=== PATIENT | male | born 1990 | race Caucasian/White ===

== ENCOUNTER 2018-06-11 16:26 | Emergency (ER) | payer OTHER ==
[2018-06-11] MEDS ORDERED: Sodium Chloride 0.9% 10 ML Syringe FLUSH PRN (16:27)
[2018-06-11] MEDS ORDERED: Sodium Chloride 0.9% 2.5 ML Syringe FLUSH PRN (16:27)
--- NOTE | 2018-06-11 16:34 | EDM.PDOC ---
ED HPI GENERAL MEDICAL PROBLEM - General Stated Complaint: UNKNOWN Time Seen by Provider: 06/11/18 16:27 - History of Present Illness INITIAL COMMENTS - FREE TEXT/NARRATIVE: HISTORY AND PHYSICAL: History of present illness: The patient is a healthy 28 y/o male who presents from work in the [employer] after having a high pressure piece of equipment strike him in the anterior chest wall causing him to be thrown backwards and fall to the ground. The patient did not pass out or blacked out but says that he was dazed and had the wind knocked out of him. He presents to the ED through triage with complaints of anterior chest wall pain only. He says that his coworkers noticed some redness to the top of his scalp but he has no head neck or back pain no extremity complaints and no abdominal complaints. He says he felt some nausea at the time of the events but no longer feels nauseated and had no vomiting. Patient has no numbness weakness or tingling in his extremities and says that there is discomfort in his anterior chest wall which is bilateral and midsternal and is worse with movement and deep breaths. He also says that this piece of equipment after striking his chest and then flew up and hit him in the face causing him to have a bilateral nosebleed but he does not have any tooth pain facial pain nasal pain or any other issues with his face or neck. Prior to these events he was in his usual state of good health with no systemic complaints. After he was struck and he fell backwards he did not fall any significant height just his own physical height. Review of systems: As per history of present illness and below otherwise all systems reviewed and negative. Past medical history: As per history of present illness and as reviewed below otherwise noncontributory. Surgical history: As per history of present illness and as reviewed below otherwise noncontributory. Social history: No reported history of drug or alcohol abuse. Family history: As per history of present illness and as reviewed below otherwise noncontributory. Physical exam: General: Well-developed well-nourished man who is nontoxic and vital signs were noted by me. He ablated into the ED without assistance. C-collar was not applied as I quickly assess the patient's exam and the patient had no tenderness defects or deformities appreciated and was awake alert and oriented and competent to make that determination. I did not place the collar on and clinically cleared him HEENT: Atraumatic except for a small area of redness noticed to the top of his head and off to the left slightly without any soft tissue swelling deformities defects or lacerations, normocephalic, pupils reactive, EOMs are intact, negative for conjunctival pallor or scleral icterus, mucous membranes moist, throat clear, neck supple, nontender, trachea midline. There are no midline step -offs tenderness defects of the cervical spine, there is no visible evidence of any soft tissue swelling of the facial bones and there are no palpable bony deformities of any of the facial architecture, teeth and bite are intact, there is some clotted nasal blood bilaterally but no active nasal bleeding is appreciated and the nasal bridge is stable and intact and the nose looks to be in good alignment, the patient is not complaining of any tenderness on palpation of the facial bones. Lungs: Clear to auscultation, breath sounds equal bilaterally, there is no soft tissue evidence of any trauma such as ecchymosis erythema or abrasions. There is reproducible tenderness with palpation of the sternum throughout the middle section as well as on the anterior ribs bilaterally but there is no palpable bony deformities crepitus or defects appreciated. There is good Air exchange without wheezing or stridor Heart: S1S2, regular, negative for clicks, rubs, or JVD. Abdomen: Soft, nondistended, nontender. Negative for masses or hepatosplenomegaly. Negative for costovertebral tenderness. There is no evidence of any soft tissue injury seen on the abdominal wall and no rebound guarding or tenderness on deep palpation and bowel sounds are normoactive Pelvis: Stable nontender. Genitourinary: Deferred. Rectal: Deferred. Extremities: Atraumatic, negative for cords or calf pain. Neurovascular unremarkable. Full range of motion without defects or deficits and no tenderness or bony deformities on palpation Neuro: Awake, alert, oriented. Cranial nerves II through XII unremarkable. Cerebellum unremarkable. Motor and sensory unremarkable throughout. Exam nonfocal. Back: There are no midline step-offs in his defects of the thoracic or lumbar spine no posterior rib or posterior pelvis tenderness and no soft tissue evidence of any trauma such as ecchymosis erythema or abrasions or soft tissue swelling Diagnostics: EKG CBC CMP INR CT scan of the head and chest chest Therapeutics: IV O2 monitor IV placement Toradol Due to the mechanism of injury this case was called as a trauma alert and I will involve Dr. Monet our trauma surgeon on-call as needed pending the testing results as above He is aware of testing results and the negative CT scan findings. I've given him some Toradol for pain management and advised him he will be sore and that he should follow-up with his occupational health person as well as primary care as needed. I will also give him referral to Dr. Monet for follow-up if he chooses. Impression: Chest wall contusion, scalp contusion, status post blunt trauma stable Definitive disposition and diagnosis as appropriate pending reevaluation and review of above. chest Pain Score (Numeric/FACES): 5 - Related Data Allergies Allergy/AdvReac Type Severity Reaction Status Date / Time No Known Allergies Allergy Verified 06/11/18 16:35 Home Meds: Home Meds . [No Known Home Meds] 06/11/18 [History] ED ROS GENERAL - Review of Systems Review Of Systems: ROS reveals no pertinent complaints other than HPI. ED EXAM, GENERAL - Physical Exam Exam: See Below (See dictation) Course - Vital Signs Last Recorded V/S: Last Vital Signs Temp 37.3 C 06/11/18 16:31 Pulse 96 06/11/18 16:31 Resp 18 06/11/18 16:31 BP 152/90 H 06/11/18 16:31 Pulse Ox 96 06/11/18 16:31 - Orders/Labs/Meds Orders: Active Orders 24 hr Category Date Time Status Patient Status [ADT] Stat ADT 06/11/18 17:17 Active Cardiac Monitoring [RC] . DIRECTED Care 06/11/18 16:27 Active EKG Documentation Completion [RC] STAT Care 06/11/18 16:27 Active Oxygen Therapy, ED [RC] ASDIRECTED Care 06/11/18 16:27 Active Pulse Oximetry [RC] ASDIRECTED Care 06/11/18 16:27 Active Chest w Cont [CT] Stat Exams 06/11/18 16:27 Taken Sodium Chloride 0.9% [Saline Flush] Med 06/11/18 16:27 Active 10 ml FLUSH ASDIRECTED PRN Sodium Chloride 0.9% [Saline Flush] Med 06/11/18 16:27 Active 2.5 ml FLUSH ASDIRECTED PRN Saline Lock Insert [OM.PC] Stat Oth 06/11/18 16:27 Ordered Medication Orders Sodium Chloride (Saline Flush) 10 ml FLUSH ASDIRECTED PRN PRN Reason: Keep Vein Open Sodium Chloride (Saline Flush) 2.5 ml FLUSH ASDIRECTED PRN PRN Reason: Keep Vein Open Labs: Laboratory Tests 06/11/18 06/11/18 06/11/18 Range/Units 16:25 16:25 16:30 WBC 11.08 H (4.0-11.0) K/uL RBC 5.01 (4.50-5.90) M/uL Hgb 14.2 (13.0-17.0) g/dL Hct 43.1 (38.0-50.0) % MCV 86.0 (80.0-98.0) fL MCH 28.3 (27.0-32.0) pg MCHC 32.9 (31.0-37.0) g/dL RDW Std Deviation 40.5 (28.0-62.0) fl RDW Coeff of [place] 13 (11.0-15.0) % Plt Count 259 (150-400) K/uL MPV 9.90 (7.40-12.00) fL Neut % (Auto) 67.4 (48.0-80.0) % Lymph % (Auto) 24.5 (16.0-40.0) % [place] % (Auto) 6.1 (0.0-15.0) % Eos % (Auto) 1.6 (0.0-7.0) % Baso % (Auto) 0.4 (0.0-1.5) % Neut # (Auto) 7.5 H (1.4-5.7) K/uL Lymph # (Auto) 2.7 H (0.6-2.4) K/uL [place] # (Auto) 0.7 (0.0-0.8) K/uL Eos # (Auto) 0.2 (0.0-0.7) K/uL Baso # (Auto) 0.0 (0.0-0.1) K/uL Nucleated RBC % 0.0 /100WBC Nucleated RBCs # 0 K/uL INR 0.97 Sodium 140 (136-148) mmol/L Potassium 3.5 (3.5-5.1) mmol/L Chloride 103 (98-107) mmol/L Carbon Dioxide 28.3 (21.0-32.0) mmol/L BUN 21 H (7.0-18.0) mg/dL Creatinine 1.1 (0.8-1.3) mg/dL Est Cr Clr Drug Dosing 101.77 mL/min Estimated GFR (MDRD) > 60.0 ml/min Glucose 70 L (74-106) mg/dL Calcium 9.0 (8.5-10.1) mg/dL Total Bilirubin 0.3 (0.2-1.0) mg/dL AST 22 (15-37) IU/L ALT 33 (14-63) IU/L Alkaline Phosphatase 96 (46-116) U/L Total Protein 8.1 (6.4-8.2) g/dL Albumin 4.3 (3.4-5.0) g/dL Globulin 3.8 (2.6-4.0) g/dL Albumin/Globulin Ratio 1.1 (0.9-1.6) Meds: Medications Generic Name Dose Route Start Last Admin Trade Name Freq PRN Reason Stop Dose Admin Sodium Chloride 10 ml 06/11/18 16:27 Saline Flush FLUSH ASDIRECTED PRN Keep Vein Open Sodium Chloride 2.5 ml 06/11/18 16:27 Saline Flush FLUSH ASDIRECTED PRN Keep Vein Open Discontinued Medications Generic Name Dose Route Start Last Admin Trade Name Freq PRN Reason Stop Dose Admin Iopamidol 75 ml 06/11/18 17:04 06/11/18 17:05 Isovue Multipack-370 (76%) IVPUSH 06/11/18 17:05 75 ml ONETIME ONE Administration Ketorolac Tromethamine 30 mg 06/11/18 18:02 Toradol IVPUSH 06/11/18 18:03 ONETIME ONE Departure - Departure Time of Disposition: 18:09 Disposition: Home, Self-Care 01 Condition: Good Clinical Impression: Blunt trauma Chest wall contusion Qualifiers: Encounter type: initial encounter Laterality: unspecified laterality Qualified Code(s): S20.219A - Contusion of unspecified front wall of thorax, initial encounter Scalp contusion Qualifiers: Encounter type: initial encounter Qualified Code(s): S00.03XA - Contusion of scalp, initial encounter - Discharge Information Additional Instructions: The following information is given to patients seen in the emergency department who are being discharged to home. This information is to outline your options for follow-up care. We provide all patients seen in our emergency department with a follow-up referral. The need for follow-up, as well as the timing and circumstances, are variable depending upon the specifics of your emergency department visit. If you don't have a primary care physician on staff, we will provide you with a referral. We always advise you to contact your personal physician following an emergency department visit to inform them of the circumstance of the visit and for follow-up with them and/or the need for any referrals to a consulting specialist. The emergency department will also refer you to a specialist when appropriate. This referral assures that you have the opportunity for followup care with a specialist. All of these measure are taken in an effort to provide you with optimal care, which includes your followup. Under all circumstances we always encourage you to contact your private physician who remains a resource for coordinating your care. When calling for followup care, please make the office aware that this follow-up is from your recent emergency room visit. If for any reason you are refused follow-up, please contact the [facility] emergency department at and ask to speak to the emergency department charge nurse. [facility] [address] [place] [phone] Use ice to area of discomfort and swelling for the next 24-48 hours and use over -the-counter Tylenol or ibuprofen for pain management. Try to do all activities were slowly and allow her body to heal. Call and schedule a follow-up appointment with our trauma surgeon for reevaluation and further care using resources given to above. Return to ER as needed and as discussed. - My Orders Last 24 Hours: My Active Orders 06/11/18 16:27 Cardiac Monitoring [RC] . DIRECTED EKG Documentation Completion [RC] STAT Oxygen Therapy, ED [RC] ASDIRECTED Pulse Oximetry [RC] ASDIRECTED Chest w Cont [CT] Stat Sodium Chloride 0.9% [Saline Flush] 10 ml FLUSH ASDIRECTED PRN Sodium Chloride 0.9% [Saline Flush] 2.5 ml FLUSH ASDIRECTED PRN Saline Lock Insert [OM.PC] Stat 06/11/18 17:17 Patient Status [ADT] Stat - Assessment/Plan Last 24 Hours: My Active Orders 06/11/18 16:27 Cardiac Monitoring [RC] . DIRECTED EKG Documentation Completion [RC] STAT Oxygen Therapy, ED [RC] ASDIRECTED Pulse Oximetry [RC] ASDIRECTED Chest w Cont [CT] Stat Sodium Chloride 0.9% [Saline Flush] 10 ml FLUSH ASDIRECTED PRN Sodium Chloride 0.9% [Saline Flush] 2.5 ml FLUSH ASDIRECTED PRN Saline Lock Insert [OM.PC] Stat 06/11/18 17:17 Patient Status [ADT] Stat
[2018-06-11] MEDS ORDERED: Iopamidol 755 MG/ML 500 ML Multipack Bottle IVPUSH ONE (17:04)
[2018-06-11 17:55] LABS: CHLORIDE,CL 103 mmol/L (98-107); SODIUM,NA 140 mmol/L (136-148)
[2018-06-11] MEDS ORDERED: Ketorolac 30 MG/ML SDV IVPUSH ONE (18:02)
--- NOTE | 2018-06-11 18:02 | CT ---
INDICATION: Blunt trauma TECHNIQUE: CT head without contrast. COMPARISON: None FINDINGS: CSF spaces: Within normal limits for age. Brain parenchyma: The scott-white differentiation is normal. No sign of mass, hemorrhage, or midline shift. Skull base and calvarium: Maxillary sinus focal mucosal thickening. The visualized orbits are grossly unremarkable. No skull fractures. IMPRESSION: Unremarkable noncontrast head CT. Dictated by Gerard Arevalo MD @ 06/11/2018 6:01:17 PM Please note that all CT scans at this facility use dose modulation, iterative reconstruction, and/or weight-based dosing when appropriate to reduce radiation dose to as low as reasonably achievable. Dictated by: Gerard Arevalo MD @ 06/11/2018 18:01:33 (Electronically Signed)
--- NOTE | 2018-06-11 18:09 | CT ---
INDICATION: Blunt trauma TECHNIQUE: CT chest was acquired with IV contrast. 75 cc Isovue 370 COMPARISON: None FINDINGS: Cardiovascular structures: Heart size is normal. Thoracic aorta and main pulmonary artery are normal in caliber. Mediastinum and lucy: No mass or adenopathy. Lungs: Clear. Pleura and pericardium: No effusions. Chest wall and axilla: No mass or adenopathy. Bones: No significant findings. Upper abdomen: Unremarkable. IMPRESSION: Atraumatic appearance of the chest. Dictated by Gerard Arevalo MD @ 06/11/2018 6:07:26 PM Please note that all CT scans at this facility use dose modulation, iterative reconstruction, and/or weight-based dosing when appropriate to reduce radiation dose to as low as reasonably achievable. Dictated by: Gerard Arevalo MD @ 06/11/2018 18:07:32 (Electronically Signed)
== END 2018-06-11 18:18 | disposition home or self-care (01) ==
LOC: MW.ED 16:26
DX: S00.03XA Contusion of scalp, initial encounter (principal); S20.219A Contusion of unspecified front wall of thorax, initial encounter; W22.8XXA Striking against or struck by other objects, initial encounter
CPT/HCPCS: 36415; 70450; 71260; 80053; 85025; 85610; 93005; 99284; Q9967

== ENCOUNTER 2019-01-28 11:00 | Emergency (ER) | payer MEDICAID ==
[2019-01-28] MEDS ORDERED: Diphtheria,Pertussis(Acell),Tetanus Vaccine 0.5 ML Syringe IM ONE (11:34)
[2019-01-28] MEDS ORDERED: Octyl 2-Cyanoacrylate 1 Tube ONE (11:37)
[2019-01-28] MEDS ORDERED: Octyl 2-Cyanoacrylate 1 Tube TOP ONE (11:41)
--- NOTE | 2019-01-28 12:02 | EDM.PDOC ---
ED [facility] GENERAL MEDICAL PROBLEM - General Chief Complaint: Laceration Stated Complaint: KNIFE CUT IN LT FOOT Time Seen by Provider: 01/28/19 11:25 Source of Information: Reports: Patient History Limitations: Reports: No Limitations - History of Present Illness INITIAL COMMENTS - FREE TEXT/NARRATIVE: Patient [id number] male with no past medical history presenting with chief complaint of laceration to the left foot. Patient states he dropped a pocket knife on his foot last night and cut his foot. Patient washed the foot off and covered it with alcohol and superglue. Patient denies any breakage of the blade. Patient has pain with ambulation. Patient states pain is mild. Patient denies any discharge or bleeding from the wound. Patient has no systemic symptoms. In addition to that documented in the HPI above, the additional ROS was obtained : Constitutional: Denies fevers or chills Eyes: Denies vision changes ENMT: Denies sore throat CV: Denies chest pain Resp: Denies SOB GI: Denies vomiting or diarrhea : Denies painful urination MSK: Denies recent trauma Skin: Denies new rashes Neuro: Denies new numbness or tingling or weakness Endocrine: Denies unexpected weight loss Heme: Denies bleeding disorders I have reviewed the triage vital signs Const: Well nourished, well developed, appears stated age Eyes: PERRL, no conjunctival injection HENT: NCAT, Neck supple without meningismus CV: RRR, Warm, well-perfused extremities RESP: CTAB, Unlabored respiratory effort GI: soft, non-tender, non-distended, no masses MSK: No gross deformities appreciated Skin: Small superficial puncture wound present 1 to 2 cm length without bleeding or discharge. No surrounding erythema. No evidence of foreign body. No bony tenderness. Warm, dry. No rashes Neuro: Alert, vice president of operations II-XII grossly intact. Sensation and motor function of extremities grossly intact. Psych: Appropriate mood and affect Left foot Pain Score (Numeric/FACES): 6 - Related Data Allergies Allergy/AdvReac Type Severity Reaction Status Date / Time Penicillins Allergy Hives Verified 01/28/19 11:15 Home Meds: Home Meds . [No Known Home Meds] 06/11/18 [History] Past Medical History - Past Health History Medical/Surgical History: Denies Medical/Surgical History Musculoskeletal History: Reports: Fracture - Infectious Disease History Infectious Disease History: Reports: Chicken Pox Social & Family History - Family History Family Medical History: Noncontributory - Tobacco Use Smoking Status *Q: Never Smoker Second Hand Smoke Exposure: No - Caffeine Use Caffeine Use: Reports: None - Recreational Drug Use Recreational Drug Use: No ED ROS GENERAL - Review of Systems Review Of Systems: See Below ED EXAM, SKIN/RASH Exam: See Below Course - Vital Signs Last Recorded V/S: Last Vital Signs Temp 35.9 C 01/28/19 11:16 Pulse 85 01/28/19 11:16 Resp 16 01/28/19 11:16 BP 139/93 H 01/28/19 11:16 Pulse Ox 98 01/28/19 11:16 - Orders/Labs/Meds Orders: Active Orders 24 hr Category Date Time Status Vaccines to be Administered [RC] PER UNIT ROUTINE Care 01/28/19 11:35 Ordered Meds: Medications Discontinued Medications Generic Name Dose Route Start Last Admin Trade Name Payal PRN Reason Stop Dose Admin Diphtheria/Tetanus/Acell Pertussis 0.5 ml 01/28/19 11:34 01/28/19 11:51 Adacel IM 01/28/19 11:35 0.5 ml .ONCE ONE Administration Octyl Cyanoacrylate Confirm 01/28/19 11:37 01/28/19 11:42 Dermabond Advance Administered 01/28/19 11:38 Not Given Dose 1 applic .ROUTE .STK-MED ONE Octyl Cyanoacrylate 1 applic 01/28/19 11:41 01/28/19 11:51 Dermabond Advance TOP 01/28/19 11:42 1 applic ONETIME ONE Administration Departure - Departure Time of Disposition: 12:00 Disposition: Home, Self-Care 01 Condition: Good Clinical Impression: Puncture wound - injury - Discharge Information Instructions: Puncture Wound, [id number] Referrals: PCP,None [Primary Care Provider] - Sepsis Event Note - Evaluation Sepsis Screening Result: No Definite Risk - Focused Exam Vital Signs: Vital Signs Temp Pulse Resp BP Pulse Ox 01/28/19 11:16 35.9 C 85 16 139/93 H 98 Date Exam was Performed: 01/28/19 Time Exam was Performed: 11:58 - My Orders Last 24 Hours: My Active Orders 01/28/19 11:35 Vaccines to be Administered [RC] PER UNIT ROUTINE - Assessment/Plan Last 24 Hours: My Active Orders 01/28/19 11:35 Vaccines to be Administered [RC] PER UNIT ROUTINE Assessment:: Pt was discharged home/self-care. Pt was discharged with the following prescriptions: None. Pt was provided written discharge instructions. Additional verbal instructions were given and discussed with Pt including, but not limited to, infection, bleeding. Pt was asked to return to the ED immediately for any new or concerning or if they worsen. Pt was in agreement, endorsed understanding, and questions were answered. Pt instructed to follow-up with PCP as needed. Plan: No evidence of infection. Wound care provided in the emergency room. Tetanus up-to-date now. Given return precautions for wound.
== END 2019-01-28 12:18 | disposition home or self-care (01) ==
LOC: MW.ED 11:00
DX: S91.332A Puncture wound without foreign body, left foot, initial encounter (principal); Z88.0 Allergy status to penicillin; Z23 Encounter for immunization; W26.0XXA Contact with knife, initial encounter
CPT/HCPCS: 12001; 90471; 90715; 99282; A9270